=== PATIENT | male | born 1985 | race Caucasian/White ===

== ENCOUNTER 2021-10-06 12:59 | Outpatient (REF) | payer OTHER, SELFPAY ==
--- NOTE | ~2021-10-06 | MR_ITS ---
EXAMINATION: MR BRAIN WITHOUT AND WITH CONTRAST CLINICAL INFORMATION: Multiple sclerosis. COMPARISON: Report from MRI dated 08/30/2019. No images available at this time. TECHNIQUE: MRI of the brain was obtained using routine sequences without and with contrast using MS protocol following the administration of 10 mL of Gadavist intravenous contrast. This included a sagittal 3D high-resolution T2 CUBE FLAIR sequence. FINDINGS: There are multiple T2/FLAIR hyperintense lesions. This includes lesions within the subcortical, deep white matter, periventricular, callosal, and minimal cerebellar distributions. New Lesions: No prior available for comparison at the time of dictation. Enhancing Lesions: None. Restricted Diffusion: None. T1 Black Holes: None. Volume Loss: None. Additional Findings: No evidence of edema or expansion of the optic nerves. No focal restricted diffusion is seen to suggest acute or subacute cerebral ischemia. No intracranial mass, intra-axial blood products, midline shift, or extra-axial collection is demonstrated. The ventricles and sulcal spaces appear normal. Normal arterial and venous vascular flow voids are present. No signal abnormalities within the superior sagittal or transverse sinuses. Mild to moderate mucosal thickening of the paranasal sinuses. No signal abnormalities within the mastoids. MR/MR head/brain wo/w con IMPRESSION: Scattered, predominantly supratentorial T2 FLAIR hyperintensities consistent with an underlying diagnosis of demyelination in the appropriate clinical setting. No available comparison at this time to evaluate for new lesions. There is no demonstrated restricted diffusion or abnormal enhancement to suggest active demyelination. If prior examinations become available, comparison can be made in the form of an addendum.
== END 2021-10-06 13:00 | disposition home or self-care (01) ==
LOC: HO.MRI 12:59
PROVIDERS: Visit Provider Psychiatry & Neurology Neurology
DX: G35 Multiple sclerosis (principal)
CPT/HCPCS: 70553; A9585

== ENCOUNTER 2022-02-02 16:32 | Outpatient (REF) | payer OTHER, SELFPAY ==
[2022-02-03 06:33] LABS: HBc Num1 0.17 S/CO (0.00-0.79); Hepatitis B Core Antibody Nonreactive (Nonreactive)
[2022-02-07 13:17] LABS: IgA 309 mg/dL (47-310); IgG 1253 mg/dL (600-1640); IgM 65 mg/dL (50-300)
== END 2022-02-02 16:33 | disposition home or self-care (01) ==
LOC: HO.LAB 16:32
PROVIDERS: Visit Provider Psychiatry & Neurology Neurology
DX: F41.9 Anxiety disorder, unspecified (principal)
CPT/HCPCS: 36415; 82784; 86334; 86704